=== PATIENT | male | born 1930 | race Caucasian/White ===

== ENCOUNTER 2017-01-02 13:47 | Emergency (ER) | payer MEDICARE ==
--- NOTE | 2017-01-02 14:08 | Emergency Department Record ---
History of Present Illness - General Chief complaint: ENT Stated complaint: SORE THROAT AND COUGH Time Seen by Provider: 01/02/17 13:59 Source: Patient Mode of Arrival: Ambulatory Limitations: No limitations - History of Present Illness Initial comments: The patient is here due to a 5 day hx of cough, congestion, ST and mild sputum production. He denies any CP, SOB, fever, or AGUIRRE. complaint: Sore throat Onset/Timin -: Days(s) Location: Throat Severity: Moderate Consistency: Constant Improves with: None Worsens with: None Associated Symptoms: Cough, Rhinorrhea, Sore throat - Related Data Home Medications Medication Instructions Recorded Confirmed Last Taken Allopurinol [Allopurinol] 100 mg PO DAILY 10/28/13 01/02/17 01/02/17 Amlodipine Besylate [Amlodipine 10 mg PO DAILY 10/28/13 01/02/17 01/02/17 Besylate] Aspirin 325 mg PO QHS 10/28/13 01/02/17 01/02/17 Atorvastatin Calcium [Lipitor] 10 mg PO DAILY 10/28/13 01/02/17 01/02/17 Clopidogrel Bisulfate [Clopidogrel] 75 mg PO DAILY 10/28/13 01/02/17 01/02/17 Previous Rx's Medication Instructions Recorded Azithromycin [Zithromax] 250 mg PO ASDIR #6 tab 01/02/17 Benzonatate [Tessalon] 1 cap PO Q8H PRN #15 cap 01/02/17 Fluticasone Propionate [Flonase] 2 spray EACH NARES DAILY #1 bottle 01/02/17 Allergies Allergy/AdvReac Type Severity Reaction Status Date / Time penicillin V potassium Allergy Unknown PT UNSURE Verified 01/02/17 13:54 OF REACTION Sulfa (Sulfonamide Allergy Unknown PT UNSURE Verified 01/02/17 13:54 Antibiotics) OF REACTION codeine AdvReac Severe HEADACHE Verified 01/02/17 13:54 Travel Screening - Travel/Exposure Within Last 30 Days Have you traveled within the last 30 days?: No - Travel/Exposure Within Last Year Have you traveled outside the [place] in the last year?: No - Additonal Travel Details Have you been exposed to anyone with a communicable illness?: No - Travel Symptoms Symptom Screening: None Review of Systems Constitutional: Denies: Chills, Fever, Malaise Eyes: Denies: Eye discharge ENT: Reports: Congestion Respiratory: Reports: Cough. Denies: Dyspnea Cardiovascular: Denies: Arrhythmia, Chest pain Past Medical History - SOCIAL HISTORY Smoking Status: Former smoker Alcohol Use: None Drug Use: None - RESPIRATORY Hx Respiratory Disorders: No - CARDIOVASCULAR Hx Cardio Disorders: Yes Hx Chest Pain: Yes Hx Edema: Yes (no edema x 3 months) Hx Heart Attack: Yes (2011) Hx Hypertension: Yes Hx Coronary Stent: Yes - NEURO Hx Neuro Disorders: Yes Hx Dizziness: Yes (at times from neck pain) - GI Hx GI Disorders: Yes Hx Diverticulitis: Yes Hx Irritable Bowel: Yes (occ.) Hx Wt Loss/Wt Gain: Yes (down 15# r/t pain) - Hx Genitourinary Disorders: Yes Hx Prostate Problems: Yes - ENDOCRINE Hx Endocrine Disorders: No - MUSCULOSKELETAL Hx Musculoskeletal Disorders: Yes Hx Arthritis: Yes Hx Gout: Yes (takes daily med for gout) Comment:: neck pain worse than last visit - PSYCH Hx Psych Problems: Yes Hx Depression: Yes (controlled) - HEMATOLOGY/ONCOLOGY Hx Hematology/Oncology Disorders: Yes Hx Bruising: Yes (takes plavix) Family Medical History Any Significant Family History?: Yes Hx Heart Disease: Brother/Sister Physical Exam - General General Appearance: Alert, Oriented x3, Cooperative, No acute distress - Head Head exam: Atraumatic, Normocephalic, Normal inspection - Eye Eye exam: Normal appearance, PERRL - ENT ENT exam: Normal exam, Mucous membranes moist, Normal external ear exam. negative: Normal orophraynx, TM's normal bilaterally (There is very mild erythema to the L TM area.) Ear exam: Normal external inspection. negative: External canal tenderness Nasal Exam: Normal inspection. negative: Discharge, Sinus tenderness Teeth exam: negative: Dental caries Throat exam: Tonsillar erythema. negative: Normal inspection, Tonsillar exudate , R peritonsillar mass, L peritonsillar mass - Neck Neck exam: Normal inspection, Full ROM. negative: Tenderness - Respiratory Respiratory exam: Normal lung sounds bilaterally. negative: Respiratory distress, Rhonchi, Stridor, Wheezes - Cardiovascular Cardiovascular Exam: Regular rate, Normal rhythm, Normal heart sounds - GI/Abdominal GI/Abdominal exam: negative: Tenderness - Extremities Extremities exam: Normal inspection, Normal capillary refill. negative: Tenderness - Back Back exam: Reports: Normal inspection, Full ROM. Denies: Muscle spasm, Rash noted, Tenderness - Neurological Neurological exam: Alert, Normal gait, Oriented X3 - Psychiatric Psychiatric exam: Normal affect, Normal mood - Skin Skin exam: Dry, Normal color Course Vital Signs 01/02/17 13:55 Temperature 98.3 F Pulse Rate 85 Respiratory 20 Rate Blood Pressure 138/63 Pulse Ox 98 - Reevaluation(s) Reevaluation #1: I did explain to the patient that it appears that he has a URI and we will prescribe him an oral Abx, with Flonase and a cough medicine. 01/02/17 14:18 Disposition Disposition: Discharge Clinical Impression: Upper respiratory infection, acute Disposition: Home, Self-Care Condition: (1) Good Instructions: Acute Bronchitis (ED) Additional Instructions: The patient is to take the Zpak, Flonase, and Tessilon as directed. He is to see his PCP on Friday if not better and is to return to the ER for any worsening cough, fever, chills, or trouble breathing. Prescriptions: Azithromycin [Zithromax] 250 mg PO ASDIR #6 tab Benzonatate [Tessalon] 1 cap PO Q8H PRN #15 cap PRN Reason: Cough Fluticasone Propionate [Flonase] 2 spray EACH NARES DAILY #1 bottle Forms: Patient Portal Access Time of Disposition: 14:08 Quality - Quality Measures Quality Measures: Upper Respiratory Infection - Blood Pressure Screening View Details: Yes Blood Pressure Classification: Pre-Hypertensive BP Reading Systolic Measurement: 138 Diastolic Measurement: 63 Screening for High Blood Pressure: < Pre-Hypertensive BP, F/U Documented > [ G8950] Pre-Hypertensive Follow-up Interventions: Follow-up with rescreen every year.
== END 2017-01-02 14:10 | disposition home or self-care (01) ==
LOC: ER 13:47
DX: J06.9 Acute upper respiratory infection, unspecified (principal); R05 Cough; Z87.891 Personal history of nicotine dependence
CPT/HCPCS: 99282

== ENCOUNTER 2017-01-20 10:20 | Emergency (ER) | payer MEDICARE ==
--- NOTE | 2017-01-20 10:34 | Emergency Department Record ---
History of Present Illness - General Chief complaint: ENT Stated complaint: EAR IMPACTED Time Seen by Provider: 01/20/17 10:32 Source: Patient Mode of Arrival: Ambulatory Limitations: No limitations - History of Present Illness Initial comments: The patient is here due to having trouble hearing out of the L ear for 3 weeks since he caught a cold. He was on an oral Abx and Flonase nasal spray. Since he has had the cold he has been unable to hear out of the L ear. There is no pain or drainage from the ear. MD complaint: Other Onset/Timin -: Week(s) Location: L ear Severity: Mild Quality: Aching Consistency: Constant Improves with: None Worsens with: None Context- Ear: Recent illness Associated Symptoms: Other - Related Data Home Medications Medication Instructions Recorded Confirmed Last Taken Allopurinol [Allopurinol] 100 mg PO DAILY 10/28/13 01/20/17 01/02/17 Amlodipine Besylate [Amlodipine 10 mg PO DAILY 10/28/13 01/20/17 01/02/17 Besylate] Aspirin 325 mg PO QHS 10/28/13 01/20/17 01/02/17 Atorvastatin Calcium [Lipitor] 10 mg PO DAILY 10/28/13 01/20/17 01/02/17 Clopidogrel Bisulfate [Clopidogrel] 75 mg PO DAILY 10/28/13 01/20/17 01/02/17 Previous Rx's Medication Instructions Recorded Ciprofloxacin HCl/Dexameth 4 drop EACH EAR BID #1 ml 01/20/17 [Ciprodex OTIC Suspension] Allergies Allergy/AdvReac Type Severity Reaction Status Date / Time penicillin V potassium Allergy Unknown PT UNSURE Verified 01/02/17 13:54 OF REACTION Sulfa (Sulfonamide Allergy Unknown PT UNSURE Verified 01/02/17 13:54 Antibiotics) OF REACTION codeine AdvReac Severe HEADACHE Verified 01/02/17 13:54 Travel Screening - Travel/Exposure Within Last 30 Days Have you traveled within the last 30 days?: No Review of Systems Constitutional: Denies: Chills, Other Eyes: Denies: Eye discharge ENT: Denies: Congestion Respiratory: Denies: Cough Past Medical History - SOCIAL HISTORY Smoking Status: Former smoker - RESPIRATORY Hx Respiratory Disorders: No - CARDIOVASCULAR Hx Cardio Disorders: Yes Hx Chest Pain: Yes Hx Edema: Yes (no edema x 3 months) Hx Heart Attack: Yes (2011) Hx Hypertension: Yes Hx Coronary Stent: Yes - NEURO Hx Neuro Disorders: Yes Hx Dizziness: Yes (at times from neck pain) - GI Hx GI Disorders: Yes Hx Diverticulitis: Yes Hx Irritable Bowel: Yes (occ.) Hx Wt Loss/Wt Gain: Yes (down 15# r/t pain) - Hx Genitourinary Disorders: Yes Hx Prostate Problems: Yes - ENDOCRINE Hx Endocrine Disorders: No - MUSCULOSKELETAL Hx Musculoskeletal Disorders: Yes Hx Arthritis: Yes Hx Gout: Yes (takes daily med for gout) Comment:: neck pain worse than last visit - PSYCH Hx Psych Problems: Yes Hx Depression: Yes (controlled) - HEMATOLOGY/ONCOLOGY Hx Hematology/Oncology Disorders: Yes Hx Bruising: Yes (takes plavix) Family Medical History Any Significant Family History?: Yes Hx Heart Disease: Brother/Sister Physical Exam - General General Appearance: Alert, Oriented x3, Cooperative - Head Head exam: Atraumatic, Normocephalic, Normal inspection - Eye Eye exam: Normal appearance, PERRL - ENT ENT exam: negative: Normal exam, TM's normal bilaterally (The L ear canal is partially occluded with Cerumen but the TM is visualized and does appear mildly inflamed. There does not appear to be an otitis media present.) Ear exam: Normal external inspection. negative: Auricular hematoma, External canal tenderness (There is no pain to palpation of the tragus or with pulling on the pinnae. The canal does not appear to be inflamed.) Throat exam: Normal inspection. negative: Tonsillar erythema, Tonsillar exudate - Neck Neck exam: Normal inspection, Full ROM. negative: Tenderness Course Vital Signs 01/20/17 10:22 Temperature 98.4 F Pulse Rate 75 Respiratory 20 Rate Blood Pressure 131/64 Pulse Ox 94 L - Reevaluation(s) Reevaluation #1: I explained to the patient that it appears he has a L middle ear effusion with inflammation on the TM. We will continue his Flonase and prescribe Abx drops and refer him to Dr. Hinton. 01/20/17 10:47 Disposition Disposition: Discharge Clinical Impression: Otitis externa of left ear Qualifiers: Otitis externa type: unspecified type Chronicity: acute Qualified Code(s): H60.502 - Unspecified acute noninfective otitis externa, left ear Disposition: Home, Self-Care Condition: (1) Good Instructions: Otitis Externa (ED) Additional Instructions: Please use the FLonase 2 puffs daily for 7 days and use the Ciprodex drops as directed. Please see Dr. Hinton in [facility] this Wed. Prescriptions: Ciprofloxacin HCl/Dexameth [Ciprodex OTIC Suspension] 4 drop EACH EAR BID #1 ml Referrals: [facility] [Provider Group] Forms: Patient Portal Access Time of Disposition: 10:49 Quality - Quality Measures Quality Measures: N/A - Blood Pressure Screening View Details: Yes Does Patient Have Any of the Following: No Blood Pressure Classification: Pre-Hypertensive BP Reading Systolic Measurement: 131 Diastolic Measurement: 64 Screening for High Blood Pressure: < Pre-Hypertensive BP, F/U Documented > [ G8950] Pre-Hypertensive Follow-up Interventions: Referral to alternative/primary care provider.
== END 2017-01-20 10:58 | disposition home or self-care (01) ==
LOC: ER 10:20
DX: H60.502 Unspecified acute noninfective otitis externa, left ear (principal); H61.22 Impacted cerumen, left ear
CPT/HCPCS: 99282

== ENCOUNTER 2017-09-26 13:18 | Observation (INO) | payer MEDICARE ==
[2017-09-26] MEDS ORDERED: 0.9 % SODIUM CHLORIDE 1,000 ML BAG IV ONE (13:45)
[2017-09-26] MEDS ORDERED: ACETAMINOPHEN 325 MG TAB PO ONE (13:45)
[2017-09-26] MEDS ORDERED: Diph,Pert(Acell),Tet Vac 0.5 ML SYR IM ONE (13:53)
--- NOTE | 2017-09-26 14:00 | Emergency Department Record ---
History of Present Illness - General Chief complaint: Weakness Stated complaint: NAUSEA,DIZZY AND WEARNESS Time Seen by Provider: 09/26/17 13:38 Source: Patient Mode of Arrival: EMS Limitations: No limitations - History of Present Illness Initial comments: The patient is here due to feeling very weak and lightheaded today with nausea. He did have some shaking last night and may have had a fever. The patient denies any CP, SOB, KEELY, AGUIRRE, AP or dysuria. He did scrape his L knee 4 days ago and now it is a little painful. The patient is feeling better at this time and his Td is not UTD. MD Complaint: Generalized weakness Onset/Timin -: Days(s) Location: Generalized Improves with: None Worsens with: None Associated Symptoms: Nausea/vomiting - [place]orn Coma Scale Eye Response: (4) Open spontaneously Motor Response: (6) Obeys commands Verbal Response: (5) Oriented Saw Total: 15 - Related Data Allergies Allergy/AdvReac Type Severity Reaction Status Date / Time penicillin V potassium Allergy Unknown PT UNSURE Verified 09/26/17 13:30 OF REACTION Sulfa (Sulfonamide Allergy Unknown PT UNSURE Verified 09/26/17 13:30 Antibiotics) OF REACTION codeine AdvReac Severe HEADACHE Verified 09/26/17 13:30 Travel Screening - Travel/Exposure Within Last 30 Days Have you traveled within the last 30 days?: No Review of Systems Constitutional: Reports: Chills, Malaise. Denies: Fever Eyes: Denies: Eye discharge ENT: Denies: Congestion Respiratory: Denies: Cough Cardiovascular: Denies: Chest pain Endocrine: Reports: Fatigue Gastrointestinal: Denies: Abdominal pain Genitourinary: Denies: Dysuria Musculoskeletal: Denies: Arthralgia Past Medical History - SOCIAL HISTORY Smoking Status: Former smoker Alcohol Use: None Drug Use: None - RESPIRATORY Hx Respiratory Disorders: No - CARDIOVASCULAR Hx Cardio Disorders: Yes Hx Chest Pain: Yes Hx Edema: Yes Hx Heart Attack: Yes (2011) Hx Hypertension: Yes Hx Coronary Stent: Yes - NEURO Hx Neuro Disorders: Yes Hx Dizziness: Yes - GI Hx GI Disorders: Yes Hx Diverticulitis: Yes Hx Irritable Bowel: Yes Hx Wt Loss/Wt Gain: Yes - Hx Genitourinary Disorders: Yes Hx Prostate Problems: Yes - ENDOCRINE Hx Endocrine Disorders: No - MUSCULOSKELETAL Hx Musculoskeletal Disorders: Yes Hx Arthritis: Yes Hx Gout: Yes - PSYCH Hx Psych Problems: Yes Hx Depression: Yes (controlled) - HEMATOLOGY/ONCOLOGY Hx Hematology/Oncology Disorders: Yes Hx Bruising: Yes Family Medical History Any Significant Family History?: Yes Hx Heart Disease: Brother/Sister Physical Exam - General General Appearance: Alert, Oriented x3, Cooperative, No acute distress - Head Head exam: Atraumatic, Normocephalic, Normal inspection - Eye Eye exam: Normal appearance, PERRL - ENT Throat exam: Normal inspection. negative: Tonsillar erythema, Tonsillar exudate - Neck Neck exam: Normal inspection, Full ROM. negative: Tenderness - Respiratory Respiratory exam: Normal lung sounds bilaterally. negative: Respiratory distress - Cardiovascular Cardiovascular Exam: Regular rate, Normal rhythm, Normal heart sounds - GI/Abdominal GI/Abdominal exam: Soft, Normal bowel sounds. negative: Tenderness - Extremities Extremities exam: Full ROM, Normal capillary refill, Tenderness. negative: Normal inspection (There is a minor abrasion to the L anterior knee with surrounding erythema and warmth. The erythema and warmth does spread to the proximal L lower leg. It does appear cellulitic.) - Back Back exam: Reports: Normal inspection - Neurological Neurological exam: Alert, Normal gait. negative: Abnormal gait, Motor sensory deficit Course Vital Signs 09/26/17 13:30 Temperature 100.9 F H Pulse Rate 104 H Respiratory 20 Rate Blood Pressure 144/77 Pulse Ox 94 L - Reevaluation(s) Reevaluation #1: The patient is doing very well at this time. His temp is improved and he denies any pain or discomfort. I did explain to him that we plan to admit him to the hospital for IV Abx's. I would like to get a urine test to make sure he has no infection but the patient does not have to go. I did discuss the case with Gunjan (WHITLEY) and she does accept the admission for Dr. Moore. I did explain to Gunjan that we are ready for his admission but would like a urine. Gunjan will check the urine after admission and will treat accordingly. 09/26/17 15:51 Medical Decision Making - Data Complexity MDM Data: Labs Ordered and/or Reviewed, X-Ray Ordered and/or Reviewed, EKG Ordered and/or Reviewed - Lab Data Result diagrams: 09/26/17 13:06 09/26/17 13:06 - EKG Data -: EKG Interpreted by Me EKG: No Acute Changes - Radiology Data Radiology results: Report reviewed (CXR: Neg for acute changes.) Disposition Disposition: Admit Clinical Impression: Cellulitis Qualifiers: Site of cellulitis: unspecified site Qualified Code(s): L03.90 - Cellulitis, unspecified Disposition: Still a Patient at [facility] Decision to Admit: Admit from ER Decision to Admit Date: 09/26/17 Decision to Admit Time: 15:55 Accepting Physician: Oscar Time Discussed w/Accepting Physician: 15:55 Condition: (2) Stable Time of Disposition: 15:55 Quality - Quality Measures Quality Measures: N/A - Blood Pressure Screening View Details: Yes Does Patient Have Any of the Following: No Blood Pressure Classification: Pre-Hypertensive BP Reading Systolic Measurement: 129 Diastolic Measurement: 67 Screening for High Blood Pressure: < Pre-Hypertensive BP, F/U Documented > [ G8950] Pre-Hypertensive Follow-up Interventions: Referral to alternative/primary care provider.
[2017-09-26 14:03] LABS: HEMATOCRIT 49.8 % (42.0-52.0); HEMOGLOBIN 17.3 gm/dl (14.0-18.0); MEAN CELL VOLUME 86.3 fl (81-97); MEAN CORPUSCULAR HGB CONC 34.7 g/dl (32-36); MEAN PLATELET VOLUME 10.3 fl (7.4-10.4); PLATELET COUNT 323 K/uL (130-400); RED BLOOD COUNT 5.77 M/uL (4.40-5.70); RED CELL DISTRIBUTION WIDTH 13.7 % (11.5-14.5); WHITE BLOOD COUNT W/O DIFF 10.3 K/uL (4.2-12.2)
[2017-09-26 14:06] LABS: MEAN CORPUSCULAR HEMOGLOBIN 29.9 pg (27-33)
[2017-09-26 14:15] LABS: BLOOD UREA NITROGEN 16 mg/dL (8-23); CREATININE 0.8 mg/dL (0.7-1.2); EST GLOMERULAR FILTRATION RATE > 60 mL/min
[2017-09-26 14:16] LABS: TOTAL PROTEIN 7.3 g/dL (6.6-8.7)
[2017-09-26 14:18] LABS: GLUCOSE,RANDOM 102 mg/dL (74-109)
[2017-09-26 14:20] LABS: ALT/SGPT 18 U/L (<41)
[2017-09-26 14:21] LABS: ALB/GLOB RATIO 1.7 (1.1-1.8); ALBUMIN 4.6 g/dL (4.0-5.0); ALKALINE PHOSPHATASE 93 U/L (40-129); AST/SGOT 18 U/L (10.0-50.0); C-REACTIVE PROTEIN 1.73 mg/dL (<0.5); CREATINE PHOSPHOKINASE 52 U/L (39-308)
[2017-09-26 14:23] LABS: CKMB 1.5 ng/mL (<6.73)
[2017-09-26] MEDS ORDERED: CLINDAMYCIN 600MG/50ML PREMIX 600 MG/50 ML BAG IVPB ONE (14:42)
[2017-09-26 16:05] LABS: URINE APPEARANCE CLOUDY; URINE BILIRUBIN NEGATIVE (NEGATIVE); URINE BLOOD TRACE-L (NEGATIVE); URINE COLOR ORANGE; URINE GLUCOSE (UA) NEGATIVE (NEGATIVE); URINE KETONE 15 mg/dL (NEGATIVE); URINE LEUKOCYTE ESTERASE TRACE (NEGATIVE); URINE NITRITE NEGATIVE (NEGATIVE); URINE PROTEIN NEGATIVE (NEGATIVE); URINE UROBILINOGEN 0.2 E.U./dL (0.20 - 1.00)
[2017-09-26 16:17] LABS: URINE BACTERIA NONE SEEN; URINE EPITHELIAL CELLS 0 - 2 (FEW); URINE RBC 0 - 2 (NONE SEEN); URINE WBC 0 - 2 (0-2/hpf)
[2017-09-26] MEDS ORDERED: ACETAMINOPHEN 325 MG TAB PO PRN (17:55)
[2017-09-26 20:13] LABS: CKMB 1.2 ng/mL (<6.73)
[2017-09-26] MEDS: CLINDAMYCIN 600MG/50ML PREMIX 600 MG/50 ML BAG IVPB SCH (20:34)
[2017-09-26] MEDS: ASPIRIN 325 MG TAB ENTERIC-COATED PO SCH (21:02)
[2017-09-26] MEDS ORDERED: ATORVASTATIN 20 MG TABLET PO SCH (22:00)
[2017-09-27] MEDS: CLINDAMYCIN 600MG/50ML PREMIX 600 MG/50 ML BAG IVPB SCH ×2 (01:06→09:16)
[2017-09-27 04:35] LABS: CKMB 1.3 ng/mL (<6.73)
[2017-09-27 06:21] LABS: BASO % 0.4 % (0-6); EOS % 1.4 % (0-6); GRAN % 63.5 % (47-80); HEMATOCRIT 45.8 % (42.0-52.0); HEMOGLOBIN 15.6 gm/dl (14.0-18.0); LYMPH % 20.4 % (16-45); MEAN CELL VOLUME 88.2 fl (81-97); MEAN CORPUSCULAR HEMOGLOBIN 30.1 pg (27-33); MEAN CORPUSCULAR HGB CONC 34.1 g/dl (32-36); MEAN PLATELET VOLUME 9.5 fl (7.4-10.4); MONO % 14.3 % (0-9); PLATELET COUNT 285 K/uL (130-400); RED BLOOD COUNT 5.19 M/uL (4.40-5.70); RED CELL DISTRIBUTION WIDTH 13.7 % (11.5-14.5); WHITE BLOOD COUNT W/O DIFF 7.2 K/uL (4.2-12.2)
[2017-09-27 06:40] LABS: BLOOD UREA NITROGEN 16 mg/dL (8-23); EST GLOMERULAR FILTRATION RATE > 60 mL/min; GLUCOSE,RANDOM 114 mg/dL (74-109)
--- NOTE | 2017-09-27 08:57 | Discharge Note ---
VTE H&P Assessment - Risk for VTE Risk for VTE: Yes Risk Level: Very Low Risk Assessment Date: 09/27/17 Risk Assessment Time: 08:54 VTE Orders Placed or Will Be Placed: Yes VTE Reason for No Prophylaxis: Not Indicated Discharge Medications - Discharge Medications Prescriptions: Clindamycin HCl 300 mg PO TID #30 capsule Home Medications: Ambulatory Orders Allopurinol 100 mg PO DAILY 10/28/13 [Last Taken 09/26/17] Amlodipine Besylate [Norvasc] 10 mg PO DAILY 10/28/13 [Last Taken 09/26/17] Aspirin 325 mg PO QHS 10/28/13 [Last Taken 09/26/17] Atorvastatin Calcium [Lipitor] 10 mg PO DAILY 10/28/13 [Last Taken 09/26/17] Clopidogrel Bisulfate [Clopidogrel] 75 mg PO DAILY 10/28/13 [Last Taken 09/26/17 ] Clindamycin HCl 300 mg PO TID #30 capsule 09/27/17 [Last Taken Unknown] Discharge Note - Date Date of Discharge Note: 09/27/17 Disposition: Home, Self-Care Condition: (1) Good Additional Instructions: follow up with Dr. Alcala in 3-4 days clindamycin 300 mg Three times a day for 10 days continue home meds Forms: Patient Portal Access Activity at Discharge: Increase Activity as Tolerated Diet at Discharge: Low Salt Diet
--- NOTE | 2017-09-27 09:31 | History & Physical ---
History of Present Illness - Date of Service Date of Service for History & Physical: 09/26/17 - History of Present Illness Admitting Diagnosis: 1. Acute L leg Cellulitis History of Present Illness: 87yo male with CC of generalized weakness. He has history of CAD with mi in 2011 , gout, depression. patient presented to the ED after a few hours of feeling generally weak. He lives alone and is independent. Says he was feeling normal up until about mid morning then just became weak and felt like he was going to fall. He had a hard time ambulating and call EMS While in the Ed, patient had EKG that did not show any ST changes or changes from prior. He did have a temp of 100.9 but other vitals were wnl normal. CXR showed NAP, UA was without evidence of infection, CBC and CMP were unremarkable. 1st set of CE wnl. He e was noted to have a small area of erythema of his left lower aguilar where a few days prior had scraped. Patient was started on clindamycin for suspected cellulitis and admitted for weakness. 09/26/17- Patient states he is feeling better after a few hours. He is still unsteady on his feet when he has tried to get up and ambulate. He denies any nasal congestion, runny nose, cough, shortness of breath, chest pain, nausea/ vomiting, diarrhea, abdominal pain, chills or fever. Travel Screening - Travel/Exposure Within Last 30 Days Have you traveled within the last 30 days?: No - Travel/Exposure Within Last Year Have you traveled outside the [place] in the last year?: No - Additonal Travel Details Have you been exposed to anyone with a communicable illness?: No - Travel Symptoms Symptom Screening: None Review of Systems Constitutional: Reports: Weakness (generalized). Denies: Fever Eyes: Denies: Eye discharge ENT: Denies: Congestion Respiratory: Denies: Cough Cardiovascular: Denies: Chest pain Endocrine: Reports: Fatigue Gastrointestinal: Denies: Abdominal pain Genitourinary: Denies: Dysuria Musculoskeletal: Denies: Arthralgia Past Medical History - SOCIAL HISTORY Smoking Status: Former smoker Alcohol Use: None Drug Use: None - RESPIRATORY Hx Respiratory Disorders: No - CARDIOVASCULAR Hx Cardio Disorders: Yes Hx Chest Pain: Yes Hx Edema: Yes Hx Heart Attack: Yes (2011) Hx Hypertension: Yes Hx Coronary Stent: Yes - NEURO Hx Neuro Disorders: Yes Hx Dizziness: Yes - GI Hx GI Disorders: Yes Hx Diverticulitis: Yes Hx Irritable Bowel: Yes Hx Wt Loss/Wt Gain: Yes - Hx Genitourinary Disorders: Yes Hx Prostate Problems: Yes - ENDOCRINE Hx Endocrine Disorders: No - MUSCULOSKELETAL Hx Musculoskeletal Disorders: Yes Hx Arthritis: Yes Hx Gout: Yes - PSYCH Hx Psych Problems: Yes Hx Depression: Yes (controlled) - HEMATOLOGY/ONCOLOGY Hx Hematology/Oncology Disorders: Yes Hx Bruising: Yes Family Medical History Any Significant Family History?: Yes Hx Heart Disease: Brother/Sister H&P Meds/Allergies - Allergies Allergies: Allergies Allergy/AdvReac Type Severity Reaction Status Date / Time penicillin V potassium Allergy Unknown PT UNSURE Verified 09/26/17 13:30 OF REACTION Sulfa (Sulfonamide Allergy Unknown PT UNSURE Verified 09/26/17 13:30 Antibiotics) OF REACTION codeine AdvReac Severe HEADACHE Verified 09/26/17 13:30 - Home Medications Previous Rx's Medication Instructions Recorded Clindamycin HCl 300 mg PO TID #30 capsule 09/27/17 - Active Medications Active Medications: Current Medications Acetaminophen (Tylenol 325mg) 650 mg PO Q6H PRN PRN Reason: PAIN/TEMP Allopurinol (Zyloprim) 100 mg PO DAILY [facility] Amlodipine Besylate (Norvasc) 10 mg PO DAILY [facility] Aspirin (Ecotrin (Ec)) 325 mg PO DAILY [facility] Last Admin: 09/26/17 21:02 Dose: 325 mg Atorvastatin Calcium (Lipitor) 10 mg PO QHS [facility] Last Admin: 09/26/17 21:02 Dose: 10 mg Clopidogrel Bisulfate (Plavix) 75 mg PO DAILY [facility] Enoxaparin Sodium (Lovenox) 40 mg SQ DAILY [facility] Clindamycin Phosphate (Cleocin 600 Fs-U0s-Dlmbwc) 600 mg in 50 mls @ 100 mls/ hr IVPB Q8H [facility] Last Admin: 09/27/17 09:16 Dose: 100 mls/hr Physical Exam - Vital Signs Vital Signs: Vital Signs - Last 24 Hrs Temp Pulse Pulse Resp BP BP Pulse Ox 09/27/17 08:27 76 16 09/26/17 21:00 75 16 09/26/17 20:06 16 93 L 09/26/17 20:00 97.9 F 70 20 112/62 95 09/26/17 17:39 98.9 F 81 18 129/67 93 L 09/26/17 17:30 98.1 F 83 18 136/76 94 L - General General Appearance: Alert, Oriented x3, Cooperative, No acute distress Limitations: No limitations - Head Head exam: Atraumatic, Normocephalic, Normal inspection - Eye Eye exam: Normal appearance, PERRL - ENT Throat exam: Normal inspection. negative: Tonsillar erythema, Tonsillar exudate - Neck Neck exam: Normal inspection, Full ROM. negative: Tenderness - Respiratory Respiratory exam: Normal lung sounds bilaterally. negative: Respiratory distress - Cardiovascular Cardiovascular Exam: Regular rate, Normal rhythm, Normal heart sounds - GI/Abdominal GI/Abdominal exam: Soft, Normal bowel sounds. negative: Tenderness - Extremities Extremities exam: Full ROM, Normal capillary refill, Tenderness. negative: Normal inspection (minor abrasion left anterior aguilar with small amount of surrounding erythema and minimal warmth. no fluctuance, streaking, or drainage present) - Back Back exam: Reports: Normal inspection - Neurological Neurological exam: Alert, Normal gait. negative: Abnormal gait, Motor sensory deficit Results - Labs Result Diagrams: 09/27/17 06:10 09/27/17 06:10 Labs Last 24 Hours: Laboratory Results - last 24 hr 09/26/17 09/27/17 09/27/17 19:50 04:10 06:10 WBC 7.2 RBC 5.19 Hgb 15.6 Hct 45.8 MCV 88.2 MCH 30.1 MCHC 34.1 RDW 13.7 Plt Count 285 MPV 9.5 Gran % 63.5 Lymphocytes % 20.4 Monocytes % 14.3 H Eosinophils % 1.4 Basophils % 0.4 Sodium Potassium Chloride Carbon Dioxide Anion Gap BUN Creatinine Estimated GFR Random Glucose Calcium CK-MB (CK-2) 1.2 1.3 Troponin T < 0.010 < 0.010 09/27/17 06:10 WBC RBC Hgb Hct MCV MCH MCHC RDW Plt Count MPV Gran % Lymphocytes % Monocytes % Eosinophils % Basophils % Sodium 140 Potassium 4.4 Chloride 103 Carbon Dioxide 28.0 Anion Gap 9.0 BUN 16 Creatinine 1.0 Estimated GFR > 60 Random Glucose 114 H Calcium 8.9 CK-MB (CK-2) Troponin T VTE H&P Assessment - Risk for VTE Risk for VTE: Yes Risk Level: Very Low Risk Assessment Date: 09/27/17 Risk Assessment Time: 08:54 VTE Orders Placed or Will Be Placed: Yes VTE Reason for No Prophylaxis: Not Indicated Plan - Inpatient Certification Inpatient Certification: Admit to inpatient care: Based on my medical assessment, after consideration of patient's risk factors (age, co-morbidities and patient presenting symptoms and acuity), I expect that this patient will remain in the hospital greater than or equal to two midnights and that the services needed warrant inpatient care because: Patient Risk Factors: [] Estimated length of stay: [] The patient may reasonably be expected to be discharged or transferred to a hospital within 96 hours after admission to [facility]. Services needed: [] Post hospital care (if known): [] I certify that my determination is in accordance with my understanding of Medicare requirements for reasonable and necessary inpatient services. - Detailed Diagnosis and Plan (1) Cellulitis Current Visit: Yes Status: Acute Qualifiers: Site of cellulitis: unspecified site Qualified Code(s): L03.90 - Cellulitis , unspecified Base Code: L03.90 - CELLULITIS, UNSPECIFIED Comment: 09/26/17- very mild cellulitis of the anterior aguilar which is likelyl source of fever. CXR, UA, CBC, CMP, CE all without signs of infection. and patient is asymptomatic aside from some generalized weakness. crp of 1.73. -continue IV clinda -continue fall risk precautions. Do not think he will need pt/ot as this is all acute. will monitor and see how he's doing tomorrow to determine need for home therapy/nursing. -vitals q8H -repeat labs qam
[2017-09-27] MEDS ORDERED: ALLOPURINOL 100 MG TAB PO SCH (10:00)
[2017-09-27] MEDS ORDERED: CLOPIDOGREL 75MG TABLET PO SCH (10:00)
[2017-09-27] MEDS ORDERED: AMLODIPINE BESYLATE 5MG TAB PO SCH (10:00)
[2017-09-27] MEDS ORDERED: ATORVASTATIN 20 MG TABLET PO SCH (10:00)
[2017-09-27] MEDS ORDERED: ENOXAPARIN 40 MG/0.4 ML SYR SQ SCH (10:00)
[2017-09-27] MEDS: ASPIRIN 325 MG TAB ENTERIC-COATED PO SCH (11:21)
--- NOTE | 2017-09-28 11:07 | RADIOLOGY REPORT ---
DATE: 09/26/2017. EXAM: PORTABLE CHEST. HISTORY: Difficulty breathing. TECHNIQUE: Portable frontal view of the chest. COMPARISON: 03/01/2015 chest. FINDINGS: Cardiomegaly with elevation of the right hemidiaphragm. Calcified granuloma in the lateral right upper lobe. Subsegmental atelectasis in the right lung base. The lungs are otherwise clear. No pneumothorax. Atheromatous change in the thoracic aorta. IMPRESSION: CARDIOMEGALY. SUBSEGMENTAL ATELECTASIS IN THE RIGHT LUNG BASE. CALCIFIED GRANULOMA IN THE LATERAL RIGHT UPPER LOBE. JOB NUMBER: [id number] MTDD
--- NOTE | 2017-09-29 08:21 | Discharge Summary ---
DATE OF ADMISSION: 09/26/2017 DATE OF DISCHARGE: 09/27/2017 Attending physician: Corby De La Fuente DO DISCHARGE DIAGNOSES: 1. Left knee cellulitis. 2. Fever, resolved. 3. Weakness, resolved. 4. Status post coronary artery disease. 5. Status post hypertension. SIGNIFICANT FINDINGS FROM EXAMINATION: Laboratory; WBC in the emergency department was 10,300, hemoglobin 17.3. He had a repeat WBC this morning 7200, hemoglobin was 15.6. His most recent electrolytes; potassium is 4.4, BUN 16, creatinine 1, glucose is 114, slightly elevated, but not significant. Troponin T and CKMB x2 time points were negative. Urine was negative for infection. EKG showing no acute changes; sinus rhythm, left anterior vesicular block. THERAPY PROVIDED: The patient was started on clindamycin 600 mg q.8 hours, switched over to oral clindamycin on discharge. HOSPITAL COURSE: The patient was much better on the next day. CONDITION ON DISCHARGE: Walking around the room without any discomfort. His leg is feeling much better. DISCHARGE INSTRUCTIONS: Follow up with Dr. Michelle in 3 to 4 days. Clindamycin 300 mg 3 times a day x10 days. Continue home medication, which are Plavix 75 mg daily, Lipitor 10 mg daily, aspirin 325 mg daily, amlodipine 10 mg daily, Allopurinol 100 mg daily. CC: ROMULO MICHELLE D.O. RICK
--- NOTE | 2017-09-29 08:21 | History and Physical Report ---
DATE OF ADMISSION: 09/26/2017 at 8:00 a.m. Surgeon: Corby De La Fuente DO CHIEF COMPLAINT: Infection, fever, cellulitis of the left knee. He has a rug burn on his right knee, which became infected, inflamed, and sore. Upon presentation, Dr. Arango started him on clindamycin in the emergency department. HISTORY OF PRESENT ILLNESS: This 87-year-old male presented to the emergency department via ambulance because of weakness, fever, shaky, unable to sleep, nauseated. He was evaluated in the emergency department by Dr. Arango and admitted to the hospital for cellulitis of the left knee, fever, and further evaluation. PAST MEDICAL HISTORY: He has history of coronary artery disease with stents, placed in 2011, an MS in 2011, hypertension. He has had some vertigo, diverticulitis, irritable bowel syndrome, benign prostatic hyperplasia, arthritis, gout, depression. PAST SURGICAL HISTORY: Prostate surgery, lumbar fusion, appendectomy, cholecystectomy, and cervical injections to his neck. MEDICATIONS ON ADMISSION: 1. Plavix 75 mg per day. 2. Lipitor 10 mg daily. 3. Aspirin 325 mg daily. 4. Amlodipine 10 mg daily. 5. Allopurinol 100 mg daily. ALLERGIES: POTASSIUM, SULFA, CODEINE. FAMILY PSYCHOSOCIAL HISTORY: Brother and sister had heart disease. Smoking status; he is a former smoker, cigarettes, 1972 is when he stopped. No alcohol or drug use. REVIEW OF SYSTEMS: HEENT: No upper respiratory infectious symptoms, cough, cold, or congestion. CARDIOVASCULAR: No chest pain, palpitations, or arrhythmias. RESPIRATORY: No cough, cold, or congestion. GASTROINTESTINAL: No nausea, vomiting, no diarrhea, black stools or bloody stools. GENITOURINARY: No dysuria, hematuria, or frequency or burning on urination. MUSCULOSKELETAL: He has arthritis, but he moves around very well. NEUROLOGIC: No CVA paralysis or paresthesias. ENDOCRINE: No diabetes or thyroid disease. INTEGUMENT: See chief complaint. He has a rash on the left knee, which is red and inflamed, and he is started on clindamycin in the emergency department for that. PHYSICAL EXAMINATION: GENERAL: Height is 6 feet 1 inches, weight is 201 pounds. VITAL SIGNS: Temperature 97.9, pulse is 76, blood pressure is 112/62, respiratory rate is 16, pulse OX is 93% on room air. HEENT: Pupils are equal, round, and reactive to light and accomodation. Extraocular muscles intact. Throat is clear. Nose is clear. Tympanic membranes are ayers. NECK: Supple. No jugular venous distention, no hepatojugular reflux, no carotid bruits. Thyroid is smooth. CARDIOVASCULAR: Regular rate and rhythm without murmurs, clicks, rubs, or gallops. RESPIRATORY: Clear to auscultation and percussion. ABDOMEN: Soft, nontender, no hepatosplenomegaly, no masses, no tenderness. Bowel sounds are active, no bruits. EXTREMITIES: No pitting edema, no cyanosis, no clubbing. Full range of motion, peripheral pulses are good. BREASTS: Normal male breasts. RECTAL: Deferred. GENITALIA: Deferred. NEUROLOGIC: Cranial nerves II through XII intact. No gross defects. Sensation normal, strength normal, deep tendon reflexes equal bilaterally. Babinski's is negative. SKIN: There is redness on the left knee, but it looks improved and he states it feels much better. MENTAL STATUS: Alert and oriented x 3. IMPRESSION: Cellulitis of the left knee. Change to observation, clindamycin 300 mg 3 times a day for 10 days. Follow up with Dr. Alcala next week. [facility]
== END 2017-09-27 11:50 | disposition home or self-care (01) ==
LOC: ER 13:18 → MEDSURG 16:57 → INTOOBSV 16:57
PROVIDERS: ADMIT Emergency Medicine; ATTEND Emergency Medicine
DX: L03.116 Cellulitis of left lower limb (principal); R11.0 Nausea; R42 Dizziness and giddiness; R50.9 Fever, unspecified; M19.90 Unspecified osteoarthritis, unspecified site; I10 Essential (primary) hypertension; F32.9 Major depressive disorder, single episode, unspecified; Z95.5 Presence of coronary angioplasty implant and graft; I25.2 Old myocardial infarction; Z87.891 Personal history of nicotine dependence
CPT/HCPCS: 99285 ×2; 96365; 96366; 82550; 85025; 86140; 82553 ×3; 80048 ×2; 80053; 81001; 84484 ×3; 85027; 71045; 93005 ×2; 93010 ×2; J3490; 90715; 99217; 99220; 99238; J7030